=== PATIENT | female | born 2000 | race Caucasian/White ===

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

== ENCOUNTER 2019-03-10 13:36 | Emergency (ER) | payer OTHER ==
[~2019-03-10] VITALS: Ht 160 cm; Wt 52.6 kg
[2019-03-10 13:41] VITALS: Ht 160 cm; Wt 52.6 kg
[2019-03-10 14:33] VITALS: BP 107/68
== END 2019-03-10 14:37 | disposition home or self-care (01) ==
LOC: ED 13:36
DX: R53.1 Weakness (principal); R53.83 Other fatigue; R42 Dizziness and giddiness

== ENCOUNTER 2019-03-26 20:00 | Emergency (ER) | payer OTHER ==
[~2019-03-26] VITALS: Ht 160 cm; Wt 54.4 kg
[2019-03-26 20:12] VITALS: BP 120/74; Ht 160 cm; Wt 54.4 kg
== END 2019-03-26 22:41 | disposition home or self-care (01) ==
LOC: ED 20:00
DX: S81.812A Laceration without foreign body, left lower leg, initial encounter (principal); F32.9 Major depressive disorder, single episode, unspecified; W55.41XA Bitten by pig, initial encounter; Y93.89 Activity, other specified; Y92.096 Garden or yard of other non-institutional residence as the place of occurrence of the external cause; Y99.8 Other external cause status
CPT/HCPCS: 90715